=== PATIENT | female | born 1995 | race Caucasian/White ===

== ENCOUNTER 2019-07-12 17:39 | Inpatient (IN) | payer OTHER ==
[2019-07-12] MEDS ORDERED: LACTATED RINGER'S 1,000 ML IV (21:27)
[2019-07-12] MEDS ORDERED: LIDOCAINE 1% (MPF) 30 ML INJ INJ (21:30)
[2019-07-12] MEDS ORDERED: CARBOPROST 250 MCG INJ IM (21:30)
[2019-07-12] MEDS ORDERED: METHYLERGONOVINE 0.2 MG INJ IM (21:30)
[2019-07-12] MEDS ORDERED: OXYTOCIN 30 UNITS/LR 500 ML IV (21:30)
[2019-07-12] MEDS ORDERED: MISOPROSTOL 200 MCG TAB PR (21:30)
[2019-07-12] MEDS: LACTATED RINGER'S 1,000 ML IV (23:00)
[2019-07-12 23:09] LABS: ADD MAN DIFF? NO
[2019-07-12] MEDS: MISOPROSTOL 50 MCG CAPSULE PO (23:10)
[2019-07-12 23:16] LABS: BASOPHILS % 0.2 % (0.0-2.0); EOSINOPHILS # 0.1 10^3/ul (0.0-0.5); EOSINOPHILS % 1.4 % (0.0-7.0); HEMATOCRIT 34.9 % (37.0-47.0); HEMOGLOBIN 11.6 g/dl (12.0-16.0); LYMPHOCYTES # 1.7 10^3/ul (0.8-2.9); LYMPHOCYTES % 26.8 % (15.0-51.0); MEAN CORPUSCULAR HEMOGLOBIN 32.3 pg (29.0-33.0); MEAN CORPUSCULAR HGB CONC 33.2 g/dl (32.0-37.0); MEAN CORPUSCULAR VOLUME 97.2 fl (82.0-101.0); MONOCYTE # 0.4 10^3/ul (0.3-0.9); MONOCYTES % 5.6 % (0.0-11.0); NEUTROPHIL # 4.2 10^3/ul (1.6-7.5); NEUTROPHILS % 65.5 % (39.0-77.0); PLATELET COUNT 149 10^3/UL (140-415); RED BLOOD COUNT 3.59 10^6/ul (4.20-5.40); RED CELL DISTRIBUTION WIDTH 13.3 % (11.5-14.5)
[2019-07-12 23:16] LABS: WHITE BLOOD COUNT 6.4 10^3/ul (4.8-10.8)
[2019-07-12 23:40] LABS: INR 0.98; PROTIME 13.1 Sec (11.9-14.9)
[2019-07-12 23:41] LABS: PARTIAL THROMBOPLASTIN TIME 30.3 Sec (23.0-35.0)
[2019-07-13 00:05] LABS: HEPATITIS B SURFACE ANTIGEN NEGATIVE (NEGATIVE)
[2019-07-13] MEDS: MISOPROSTOL 50 MCG CAPSULE PO ×3 (04:20→12:00)
[2019-07-13] MEDS: OXYTOCIN 30 UNITS/LR 500 ML IV (09:40)
[2019-07-13] MEDS: LACTATED RINGER'S 1,000 ML IV ×4 (10:45→22:29)
[2019-07-13] MEDS: BUTORPHANOL 2 MG INJ IV ×2 (12:02→15:33)
[2019-07-13 16:14] LABS: RAPID PLASMA REAGIN NONREACTIVE (NR)
[2019-07-13] MEDS ORDERED: MINERAL OIL LIGHT 10 ML VIAL TOP ×2 (19:00→20:00)
[2019-07-13] MEDS ORDERED: NALOXONE (0.4 MG/ML) INJ IV (22:30)
[2019-07-13] MEDS ORDERED: FENTAnyl 2MCG/ML-ROPIV 0.2% 100 ML BAG EPI (22:30)
[2019-07-13] MEDS ORDERED: FENTAnyl 2MCG/ML-ROPIV 0.2% 100 ML (22:35)
[2019-07-14] MEDS: LACTATED RINGER'S 1,000 ML IV (04:15)
[2019-07-14] MEDS: OXYTOCIN 30 UNITS/LR 500 ML IV ×3 (06:50→11:04)
[2019-07-14] MEDS ORDERED: MISOPROSTOL 200 MCG TAB PR (07:00)
[2019-07-14] MEDS ORDERED: ONDANSETRON 4 MG INJ IV (07:00)
[2019-07-14] MEDS ORDERED: METHYLERGONOVINE 0.2 MG INJ IM (07:00)
[2019-07-14] MEDS ORDERED: BENZOCAINE 20% 56 ML SPRAY TOP (07:00)
[2019-07-14] MEDS ORDERED: MAGNESIUM HYDROXIDE 30ML CUP PO (07:00)
[2019-07-14] MEDS ORDERED: ACETAMINOPHEN 325 MG TAB PO ×2 (07:00)
[2019-07-14] MEDS ORDERED: CARBOPROST 250 MCG INJ IM (07:00)
[2019-07-14] MEDS ORDERED: DIBUCAINE 1% 30 GM OINT TOP (07:00)
[2019-07-14] MEDS ORDERED: OXYTOCIN 30 UNITS/LR 500 ML IV (07:00)
[2019-07-14] MEDS: SENNA/DOCUSATE NA (8.6MG/50MG) TAB PO ×2 (11:04→23:53)
[2019-07-14] MEDS: LANOLIN HPA 1 PKT TOP (11:04)
[2019-07-14] MEDS: IBUPROFEN 600 MG TAB PO ×3 (11:10→23:53)
[2019-07-14] MEDS: LACTATED RINGER'S 1,000 ML IV* ×2 (12:04→14:49)
[2019-07-15 05:00] LABS: ADD MAN DIFF? NO
[2019-07-15 05:13] LABS: WHITE BLOOD COUNT 9.9 10^3/ul (4.8-10.8)
[2019-07-15 05:13] LABS: BASOPHILS % 0.2 % (0.0-2.0); EOSINOPHILS # 0.1 10^3/ul (0.0-0.5); EOSINOPHILS % 1.1 % (0.0-7.0); HEMOGLOBIN 10.3 g/dl (12.0-16.0); LYMPHOCYTES # 2.1 10^3/ul (0.8-2.9); MEAN CORPUSCULAR HEMOGLOBIN 32.9 pg (29.0-33.0); MEAN CORPUSCULAR HGB CONC 33.2 g/dl (32.0-37.0); MONOCYTE # 0.6 10^3/ul (0.3-0.9); MONOCYTES % 5.6 % (0.0-11.0); NEUTROPHIL # 7.1 10^3/ul (1.6-7.5); NEUTROPHILS % 71.7 % (39.0-77.0); PLATELET COUNT 134 10^3/UL (140-415); RED BLOOD COUNT 3.13 10^6/ul (4.20-5.40); RED CELL DISTRIBUTION WIDTH 13.4 % (11.5-14.5)
[2019-07-15] MEDS: IBUPROFEN 600 MG TAB PO (05:39)
[2019-07-15] MEDS: SENNA/DOCUSATE NA (8.6MG/50MG) TAB PO (21:01)
[2019-07-16] MEDS: WITCH HAZEL/GLYCERIN PAD PR (13:06)
== END 2019-07-16 16:30 | disposition home or self-care (01) | DRG 807 ==
LOC: OBT 17:39 → L-D 17:41 → MS1 07-14 09:44 → L-D 17:53 → OBT 21:29 → L-D 21:31
PROVIDERS: Specialist
PROC: 10E0XZZ Delivery of Products of Conception, External Approach (ICD-10-PCS; principal; 2019-07-14)
PROC: 3E033VJ Introduction of Other Hormone into Peripheral Vein, Percutaneous Approach (ICD-10-PCS; 2019-07-14)
DX: O36.5930 Maternal care for other known or suspected poor fetal growth, third trimester, not applicable or unspecified (principal); Z37.0 Single live birth; O76 Abnormality in fetal heart rate and rhythm complicating labor and delivery; Z3A.38 38 weeks gestation of pregnancy; O69.1XX0 Labor and delivery complicated by cord around neck, with compression, not applicable or unspecified
CPT/HCPCS: 62322; 76815; 76818; 85025; 85610; 85730; 86592; 86850; 86900; 86901; 87340